=== PATIENT | female | born 1965 | race Caucasian/White ===

== ENCOUNTER 2018-05-21 05:54 | Inpatient (IN) ==
[2018-05-21] MEDS ORDERED: Metoprolol Tartrate 25 MG Tablet PO ONE (06:22)
[2018-05-21] MEDS ORDERED: Chlorhexidine Gluconate 2% 1 Pack (2 Cloths) TOPICAL ONE (06:22)
[2018-05-21] MEDS ORDERED: Sod Chloride 0.9% Inj 1,000 ML IV.SIG SCH (06:30)
[2018-05-21] MEDS ORDERED: Sodium Chlor 0.9% Inj 500 ML IV.SIG SCH (07:00)
[2018-05-21] MEDS ORDERED: Vancomycin Inj 1,000 MG in Sodium Chlor 0.9% Inj 250 ML IV.SIG ONE (07:00)
[2018-05-21] MEDS ORDERED: Lidocaine PF 1% Inj 5 ML Syringe OTHER ONE (08:32)
[2018-05-21] MEDS ORDERED: Phenylephrine/NS 1000 MCG/10ML Syringe IV.PUSH ONE (08:32)
[2018-05-21] MEDS ORDERED: Gelatin Size 100 Topical Foam ONE (08:40)
[2018-05-21] MEDS ORDERED: Bupivacaine/Epinephrine 0.5% Inj 50 ML Vial ONE (08:40)
[2018-05-21] MEDS ORDERED: Thrombin Topical Soln 5,000 UNIT Vial TOPICAL ONE (08:40)
[2018-05-21] MEDS ORDERED: *Meperidine Inj 25 MG/ML Vial PERIprocedural Use ONLY ONE (09:52)
--- NOTE | 2018-05-21 09:55 | P.OP ---
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 The right frontal area overlying this scalp irritation from the underlying mesh/screw from the previous craniotomy with the cranioplasty was then shaved and prepped and draped in the usual sterile fashion. A linear incision site made after infiltrating the scalp with 0.5% Marcaine with epinephrine solution extending down through the galea. And if I this mesh along with screw that was securing the mesh to the skull that was irritating the overlying scalp that was removed and the mesh portion also resected along with some bone cement that was irritating the scalp. The area was then thoroughly irrigated with antibiotic solution and the scalp approximated with 3-0 Vicryl interrupted galeal stitches with the final skin closure with the 2-0 nylon interrupted stitches. The patient was then awoken and taken to the recovery room. There were no intra-complications and all sponge and needle count was correct at the end of the procedure. Estimate blood loss less than 5 cc.
[2018-05-21] MEDS ORDERED: *Ondansetron Inj 4 MG/2 ML Vial PERIprocedural Use ONLY ONE (10:02)
[2018-05-21] MEDS ORDERED: fentaNYL Citrate Inj 100 MCG/2 ML Ampul ONE (10:03)
== END 2018-05-21 11:59 | disposition home or self-care (01) ==
LOC: HSDI 05:54
PROVIDERS: ADMIT Neurological Surgery; ATTEND Neurological Surgery